=== PATIENT | male | born 1985 | race Caucasian/White ===

== ENCOUNTER 2018-02-26 15:19 | Emergency (ER) | END 2018-02-26 19:44 | disposition home or self-care (01) ==

== ENCOUNTER 2019-01-11 16:10 | Emergency (ER) | payer MEDICAID ==
[~2019-01-11] VITALS: Ht 170.2 cm; Wt 82.8 kg
[~2019-01-11 16:10] MED LIST: BACL10TA PO; IBUP-1542 PO; MECL12.574 PO; ONDA4TAB13 PO
[2019-01-11 16:12] VITALS: BP 120/63; PULSE 70; RESP 18; Ht 170.2 cm; Wt 82.8 kg
[2019-01-11] MEDS ORDERED: KETOROLAC 30 MG INJ IM STA (18:17)
== END 2019-01-11 19:41 | disposition home or self-care (01) ==
LOC: FTE 16:10
DX: M54.5 Low back pain (principal)
CPT/HCPCS: 72100; 96372; J1885; Z7502